=== PATIENT | male | born 1965 | race African-American/Black ===

== ENCOUNTER 2020-03-25 13:15 | Inpatient (IN) ==
[2020-03-25] MEDS ORDERED: DEXTROSE 50% 25 GM/50 ML VIAL IV PRN ×2 (19:06)
[2020-03-25] MEDS ORDERED: DOCUSATE SODIUM 100 MG CAPSULE PO PRN (19:06)
[2020-03-25] MEDS ORDERED: ONDANSETRON 4 MG/2 ML VIAL IV PRN (19:06)
[2020-03-25] MEDS ORDERED: ACETAMINOPHEN 325 MG TABLET PO PRN (19:06)
[2020-03-25] MEDS ORDERED: GLUCAGON 1 MG VIAL IM PRN (19:06)
[2020-03-25] MEDS ORDERED: hydrALAZINE 20 MG/1 ML VIAL IV PRN (19:06)
[2020-03-25] MEDS: metroNIDAZOLE INJ 500 MG in PREMIX 1 EACH IV SCH (20:47)
[2020-03-25] MEDS ORDERED: ENOXAPARIN 40 MG/0.4 ML SYRINGE SUBCUT SCH (21:00)
[2020-03-25] MEDS: POTASSIUM CHLORIDE INJ 10 MEQ in SODIUM CHLORIDE 0.9% 1,000 ML IV SCH (21:45)
[2020-03-25] MEDS: INSULIN LISPRO 100 UNIT/ML SUBCUT SCH (22:20)
[2020-03-26] MEDS: ALBUTEROL INHALER 18 GM INH SCH ×4 (01:11→20:00)
[2020-03-26] MEDS: metroNIDAZOLE INJ 500 MG in PREMIX 1 EACH IV SCH ×3 (05:00→21:33)
[2020-03-26 05:17] LABS: Apearance,Urine CLEAR (Clear); Bilirubin,Urine Negative (Negative); Blood, Urine Negative (Negative); Glucose,Urine (UA) Negative (Negative); Ketones,Urine Negative (Negative); Nitrite,Urine Negative (Negative); Protein,Urine 30 MG/DL; RBC,Urine <1 /HPF (0-4); Urine Color Yellow (Yellow); Urine Specific Gravity 1.015 (1.001-1.035); WBC,Urine 1 /HPF (0-6)
[2020-03-26 06:57] LABS: Basophils % 0.4 % (0.0-0.8); Eosinophils # 0.1 10*3/uL (0.0-0.87); Eosinophils % 1.4 % (0.00-10.9); Hematocrit 34.4 VOL% (42.0-52.0); Immature Granulocytes % 0.6 %; Immature Granulocytes Absolute 0.04 #; Lymphocytes # 1.5 10*3/uL (1.4-4.0); Lymphocytes % 20.7 % (21.2-54.2); Mean Corpuscular Volume 82.9 FL (87-102); Mean Platelet Volume 9.2 FL (9.6-12.0); Monocytes % 3.8 % (1.7-12.7); Neutrophils % 73.1 % (38.7-73.9); Platelet Count 333 T/CUMM (130-400); Red Blood Count 4.15 MC/CUMM (3.8-5.5); Red Cell Distribution Width 13.1 % (9.3-17.3)
[2020-03-26 07:35] LABS: Alanine Aminotransferase 50 U/L (16-61); Albumin 2.6 G/DL (3.4-5.0); Alkaline Phosphatase 98 U/L (45-117); Aspartate Amino Transferase 66 U/L (0-37); Bilirubin,Total < 0.39 MG/DL (0.2-1.0); Blood Urea Nitrogen 7 MG/DL (7-18); Calcium 8.4 MG/DL (8.5-10.1); Estimated Glom Filtration Rate 119 ML/MIN; Ferritin 386.3 ng/ml (26-388); Glucose 212 MG/DL (74-106); HDL Cholesterol 29 MG/DL (40-60); Osmolality,Calculated 273.1 MOS/KG (273-304); Risk Ratio 4.52; Triglycerides 173 MG/DL (2-150); VLDL CHOLESTEROL 34.6 MG/DL
[2020-03-26 07:58] LABS: Hypochromasia Slight; Platelet Estimate Adequate
[2020-03-26] MEDS: INSULIN LISPRO 100 UNIT/ML SUBCUT SCH ×4 (08:49→21:31)
[2020-03-26] MEDS: AZITHROMYCIN 250 MG TABLET PO SCH (08:51)
[2020-03-26] MEDS: ZINC SULFATE 220 MG CAPSULE PO SCH (08:51)
[2020-03-26] MEDS: PANTOPRAZOLE 40 MG TABLET PO SCH (08:51)
[2020-03-26] MEDS: lisinopriL 10 MG TABLET PO SCH (08:51)
[2020-03-26] MEDS ORDERED: metFORMIN 500 MG TABLET PO SCH ×2 (09:00→21:00)
[2020-03-26] MEDS ORDERED: carvediloL 6.25 MG TABLET PO SCH (10:00)
[2020-03-26] MEDS: ASCORBIC ACID 500 MG TABLET PO SCH (11:25)
[2020-03-26] MEDS ORDERED: carvediloL 25 MG TABLET PO SCH (14:22)
[2020-03-26] MEDS ORDERED: BICILLIN LA 2,400,000 UNIT/4 ML SYRINGE IM ONE (15:00)
[2020-03-26] MEDS: carvediloL 12.5 MG TABLET PO SCH ×2 (15:35→21:31)
[2020-03-26] MEDS ORDERED: SODIUM CHLORIDE 0.9% 1,000 ML IV PRN (15:50)
[2020-03-26] MEDS ORDERED: REMDESIVIR 200 MG in SODIUM CHLORIDE 0.9% 210 ML IV ONE (17:00)
[2020-03-26] MEDS: POTASSIUM CHLORIDE INJ 10 MEQ in SODIUM CHLORIDE 0.9% 1,000 ML IV SCH (18:40)
[2020-03-26] MEDS ORDERED: ENOXAPARIN 40 MG/0.4 ML SYRINGE SUBCUT SCH (21:00)
[2020-03-26] MEDS: ROSUVASTATIN 20 MG TABLET PO SCH (21:29)
[2020-03-26] MEDS: metFORMIN 850 MG TABLET PO SCH (21:30)
[2020-03-26] MEDS: COENZYME Q10 100 MG CAPSULE PO SCH (21:30)
[2020-03-27] MEDS: ALBUTEROL INHALER 18 GM INH SCH ×4 (00:28→18:38)
[2020-03-27] MEDS: POTASSIUM CHLORIDE INJ 10 MEQ in SODIUM CHLORIDE 0.9% 1,000 ML IV SCH ×2 (00:30→16:29)
[2020-03-27] MEDS: metroNIDAZOLE INJ 500 MG in PREMIX 1 EACH IV SCH (03:34)
[2020-03-27 06:39] LABS: Ferritin 340.6 ng/ml (26-388)
[2020-03-27] MEDS: carvediloL 12.5 MG TABLET PO SCH ×2 (09:17→21:21)
[2020-03-27] MEDS: metFORMIN 850 MG TABLET PO SCH ×2 (09:17→21:21)
[2020-03-27] MEDS: PANTOPRAZOLE 40 MG TABLET PO SCH (09:17)
[2020-03-27] MEDS: lisinopriL 10 MG TABLET PO SCH (09:17)
[2020-03-27] MEDS: AZITHROMYCIN 250 MG TABLET PO SCH (09:17)
[2020-03-27] MEDS: ASCORBIC ACID 500 MG TABLET PO SCH (09:17)
[2020-03-27] MEDS: INSULIN LISPRO 100 UNIT/ML SUBCUT SCH ×5 (09:17→21:21)
[2020-03-27 11:31] LABS: HIV Antigen/Antibody Result Nonreactive (Nonreactive)
[2020-03-27] MEDS: REMDESIVIR 100 MG in SODIUM CHLORIDE 0.9% 230 ML IV SCH (17:15)
[2020-03-27] MEDS: COENZYME Q10 100 MG CAPSULE PO SCH (21:21)
[2020-03-27] MEDS: ROSUVASTATIN 20 MG TABLET PO SCH (21:21)
[2020-03-27] MEDS: ENOXAPARIN 40 MG/0.4 ML SYRINGE SUBCUT SCH (21:22)
[2020-03-28] MEDS: ALBUTEROL INHALER 18 GM INH SCH ×4 (00:32→18:34)
[2020-03-28] MEDS: POTASSIUM CHLORIDE INJ 10 MEQ in SODIUM CHLORIDE 0.9% 1,000 ML IV SCH ×2 (06:32→17:25)
[2020-03-28] MEDS: INSULIN LISPRO 100 UNIT/ML SUBCUT SCH ×4 (07:31→21:40)
[2020-03-28] MEDS: metFORMIN 850 MG TABLET PO SCH ×2 (08:54→21:40)
[2020-03-28] MEDS: AZITHROMYCIN 250 MG TABLET PO SCH (08:54)
[2020-03-28] MEDS: ASCORBIC ACID 500 MG TABLET PO SCH (08:54)
[2020-03-28] MEDS: lisinopriL 10 MG TABLET PO SCH (08:54)
[2020-03-28] MEDS: carvediloL 12.5 MG TABLET PO SCH ×2 (08:54→21:40)
[2020-03-28] MEDS: ZINC SULFATE 220 MG CAPSULE PO SCH (08:54)
[2020-03-28] MEDS: REMDESIVIR 100 MG in SODIUM CHLORIDE 0.9% 230 ML IV SCH (17:25)
[2020-03-28] MEDS: ROSUVASTATIN 20 MG TABLET PO SCH (21:40)
[2020-03-28] MEDS: COENZYME Q10 100 MG CAPSULE PO SCH (21:40)
[2020-03-28] MEDS: ENOXAPARIN 40 MG/0.4 ML SYRINGE SUBCUT SCH (21:43)
[2020-03-29] MEDS: ALBUTEROL INHALER 18 GM INH SCH ×4 (00:45→18:01)
[2020-03-29 06:39] LABS: Ferritin 314.1 ng/ml (26-388)
[2020-03-29] MEDS: POTASSIUM CHLORIDE INJ 10 MEQ in SODIUM CHLORIDE 0.9% 1,000 ML IV SCH ×2 (07:00→08:23)
[2020-03-29] MEDS: INSULIN LISPRO 100 UNIT/ML SUBCUT SCH ×4 (08:00→20:51)
[2020-03-29] MEDS: ASCORBIC ACID 500 MG TABLET PO SCH (08:26)
[2020-03-29] MEDS: carvediloL 12.5 MG TABLET PO SCH ×2 (08:26→20:47)
[2020-03-29] MEDS: lisinopriL 10 MG TABLET PO SCH (08:26)
[2020-03-29] MEDS: AZITHROMYCIN 250 MG TABLET PO SCH (08:26)
[2020-03-29] MEDS: metFORMIN 850 MG TABLET PO SCH ×2 (08:26→20:47)
[2020-03-29] MEDS: REMDESIVIR 100 MG in SODIUM CHLORIDE 0.9% 230 ML IV SCH (17:03)
[2020-03-29] MEDS: ENOXAPARIN 40 MG/0.4 ML SYRINGE SUBCUT SCH (20:47)
[2020-03-29] MEDS: COENZYME Q10 100 MG CAPSULE PO SCH (20:47)
[2020-03-29] MEDS: ROSUVASTATIN 20 MG TABLET PO SCH (20:47)
[2020-03-30] MEDS: ALBUTEROL INHALER 18 GM INH SCH ×3 (00:34→14:20)
[2020-03-30 07:09] LABS: Ferritin 273.3 ng/ml (26-388)
[2020-03-30] MEDS: INSULIN LISPRO 100 UNIT/ML SUBCUT SCH ×2 (07:46→12:43)
[2020-03-30] MEDS: ZINC SULFATE 220 MG CAPSULE PO SCH (09:11)
[2020-03-30] MEDS: lisinopriL 10 MG TABLET PO SCH (09:11)
[2020-03-30] MEDS: metFORMIN 850 MG TABLET PO SCH (09:11)
[2020-03-30] MEDS: carvediloL 12.5 MG TABLET PO SCH (09:11)
[2020-03-30] MEDS: AZITHROMYCIN 250 MG TABLET PO SCH (09:11)
[2020-03-30] MEDS: ASCORBIC ACID 500 MG TABLET PO SCH (09:11)
[2020-03-30 11:47] VITALS: BP 141/82
[2020-03-30] MEDS: REMDESIVIR 100 MG in SODIUM CHLORIDE 0.9% 230 ML IV SCH (12:28)
== END 2020-03-30 15:22 | disposition home or self-care (01) | DRG 179 ==
LOC: N.2E → SUATTDRO 17:16
PROVIDERS: ADMIT Internal Medicine; ATTEND Family Medicine